=== PATIENT | female | born 1940 ===

== ENCOUNTER 2017-08-01 12:13 | Emergency (ER) | payer MEDICARE ==
[2017-08-01 12:29] VITALS: RESP 16
--- NOTE | 2017-08-01 13:37 | C.PDOC ---
History Of Present Illness 76 y/o female presents to the ER complaining of hip pain which began after she tripped and felled down backwards. Patient denies any lower back pain, head injury, loss of consciousness, and any other injury. Patient also denies having any chest palpitations and dizziness before she fell. - HPI Time Seen by Provider: 08/01/17 12:34 Chief Complaint (Nursing): Trauma History Per: Patient History/Exam Limitations: no limitations Onset/Duration Of Symptoms: Days Additional History Per: Patient - Fall Fall:Prior To Injury: Tripped Past Medical History Reviewed: Historical Data, Nursing Documentation, Vital Signs Vital Signs: Last Vital Signs Temp 98.1 F 08/01/17 12:27 Pulse 81 08/01/17 12:27 Resp 16 08/01/17 12:27 BP 154/80 H 08/01/17 12:27 Pulse Ox 96 08/01/17 13:49 - Medical History PMH: No Chronic Diseases Surgical History: No Surg Hx Family History: States: No Known Family Hx - Social History Hx Alcohol Use: No Hx Substance Use: No Review Of Systems Cardiovascular: Negative for: Palpitations Musculoskeletal: Positive for: Other (Hip Pain). Negative for: Back Pain ( lower back) Neurological: Negative for: Dizziness Physical Exam - Physical Exam Appears: Non-toxic, No Acute Distress, Other Skin: Normal Color, Warm Head: Atraumatic, Normacephalic Neck: Supple Chest: Symmetrical Cardiovascular: Rhythm Regular Respiratory: Normal Breath Sounds, No Accessory Muscle Use Back: Normal Inspection, No Paraspinal Tenderness Extremity: Normal ROM (hips), No Tenderness (hips), No Deformity (hips), No Swelling (hips) Neurological/Psych: Oriented x3, Normal Speech, Normal Cognition ED Course And Treatment O2 Sat by Pulse Oximetry: 96 (RA) Pulse Ox Interpretation: Normal - Other Rad XR pelvis X-Ray: Interpreted by Me Interpretation: no fracture, no dislocation Medical Decision Making Medical Decision Making: Impression: Hip Pain due to fall Plan: -- XR Pelvis On re-evaluation, patient able to stand up and ambulate on her own with minimal assistance. Disposition Counseled Patient/Family Regarding: Studies Performed, Diagnosis, Need For Followup, Rx Given - Disposition Disposition: HOME/ ROUTINE Disposition Time: 13:50 Condition: STABLE Additional Instructions: Follow up with your pmd in 1-2 days for re-evaluation without fail. Take medication as prescribed. Return to the ER at any time for any new or worsening symptoms. Prescriptions: Acetaminophen [Tylenol 325mg tab] 650 mg PO Q4H PRN #30 tab PRN Reason: Pain, Moderate (4-7) Instructions: Contusion in Adults (ED) Forms: [employer] (Georgian) Print Language: DIVEHI - Clinical Impression Clinical Impression: Contusion, buttock - PA / INDUSTRIAL ENGINEERING TECHNOLOGIST / Resident Statement MD/DO has reviewed & agrees with the documentation as recorded. - Scribe Statement The provider has reviewed the documentation as recorded by the Scribe Melody Alatorre All medical record entries made by the Nievesibtracee were at my direction and personally dictated by me. I have reviewed the chart and agree that the record accurately reflects my personal performance of the history, physical exam, medical decision making, and the department course for this patient. I have also personally directed, reviewed, and agree with the discharge instructions and disposition.
--- NOTE | 2017-08-01 13:50 | RAD ---
PROCEDURE: Radiographs of the pelvis. HISTORY: fall COMPARISON: None. FINDINGS: BONES: Pelvic Bones: Probable bone island -superior acetabulum and otherwise negative Hips: No fractures or dislocations. Bilateral superolateral and inferomedial joint-space narrowing with hypertrophic arthrosis JOINTS: Sacroiliac Joints: Unremarkable. Pubic Symphysis: Unremarkable. OTHER FINDINGS: None. IMPRESSION: No fracture or dislocation. Bilateral hip arthrosis
[2017-08-01 13:57] VITALS: BP 129/87; PULSE 71; TEMP 97.2; O2SAT 97
== END 2017-08-01 13:55 | disposition home or self-care (01) ==
LOC: C.ER 12:13
DX: S30.0XXA Contusion of lower back and pelvis, initial encounter (principal); W10.9XXA Fall (on) (from) unspecified stairs and steps, initial encounter